=== PATIENT | male | born 1955 | race Caucasian/White ===

== ENCOUNTER 2019-10-30 12:19 | Emergency (ER) | payer MEDICAID ==
[2019-10-30] MEDS ORDERED: Sodium Chloride 0.9% 2.5 ML Syringe FLUSH PRN (13:14)
[2019-10-30] MEDS ORDERED: Sodium Chloride 0.9% 10 ML Syringe FLUSH PRN (13:14)
[2019-10-30 14:07] LABS: BLOOD UREA NITROGEN,BUN 17 mg/dL (7.0-18.0); CARBON DIOXIDE,CO2 25.4 mmol/L (21.0-32.0); CHLORIDE,CL 96 mmol/L (98-107); GLUCOSE RANDOM 377 mg/dL (74-106); POTASSIUM,K 3.9 mmol/L (3.5-5.1); SODIUM,NA 132 mmol/L (136-148)
--- NOTE | 2019-10-30 14:30 | US ---
Bilateral lower extremity deep venous ultrasound: Duplex and color Doppler evaluation was obtained of the right and left common femoral, superficial femoral, popliteal, posterior tibial and peroneal veins. Comparison: No prior venous imaging is available. Findings: Normal compression as well as normal Doppler blood flow is seen. Impression: 1. No evidence of deep venous thrombosis within either the right or left lower extremities. Diagnostic code #1 This report was dictated in MDT
[2019-10-30] MEDS ORDERED: Lactated Ringers 1,000 ML IV ONE (14:36)
[2019-10-30 14:51] LABS: HEMOGLOBIN A1C 11.7 % (4.5-6.2)
--- NOTE | 2019-10-30 14:52 | EDM.PDOC ---
ED HPI GENERAL MEDICAL PROBLEM - General Chief Complaint: Lower Extremity Injury/Pain Stated Complaint: SWELLING IN LEGS Time Seen by Provider: 10/30/19 12:38 Source of Information: Reports: Patient History Limitations: Reports: No Limitations - History of Present Illness INITIAL COMMENTS - FREE TEXT/NARRATIVE: 62-year-old male past medical history of CAD status post multiple stents, IVC filter placement for presumptive DVT, hypertension, COPD presenting with complaints of lower extremity edema. Patient reports a one-week history of worsening of his chronic bilateral lower extremity edema, right greater than left. Reports approximately 4-year history of lower extremity edema after an IVC filter placement that was complicated by filter deformity which made removal and possible. States that his bilateral lower extremity edema is worse over the past 4 weeks. States that his shoes are now tight and he has to elevate his legs for hours at a time to get the swelling to go down. Reports that he has also had mildly increased shortness of breath over the past month or so. Intermittent chest pain for the past month as well, did experience some fleeting chest pain in triage (for a few seconds) but none since. At present he does not have any chest discomfort or shortness of breath. Reports frequent urination over the past few weeks. Back Pain Score (Numeric/FACES): 8 - Related Data Allergies Allergy/AdvReac Type Severity Reaction Status Date / Time No Known Allergies Allergy Verified 10/30/19 12:29 Home Meds: Home Meds Metoprolol Tartrate 50 mg PO BID #60 tablet 10/30/19 [Rx] Metoprolol Tartrate [Lopressor] 50 mg PO BID 10/30/19 [History] amLODIPine Besylate [Amlodipine Besylate] 10 mg PO DAILY #30 tab 10/30/19 [Rx] amLODIPine [Norvasc] 10 mg PO DAILY 10/30/19 [History] metFORMIN HCl [Metformin HCl] 500 mg PO DAILY #30 tablet 10/30/19 [Rx] Past Medical History HEENT History: Reports: Other (See Below) Other HEENT History: ears ringing Cardiovascular History: Reports: Arrhythmia, Hypertension, Stents Respiratory History: Reports: COPD Other Respiratory History: Aspiration Musculoskeletal History: Reports: Back Pain, Chronic - Infectious Disease History Infectious Disease History: Reports: Chicken Pox, Measles, Mumps - Past Surgical History GI Surgical History: Reports: Cholecystectomy Social & Family History - Family History Family Medical History: Noncontributory - Tobacco Use Smoking Status *Q: Never Smoker - Recreational Drug Use Recreational Drug Use: No Review of Systems - Review of Systems Review Of Systems: See Below Constitutional: Denies: Chills, Fever Eyes: Reports: No Symptoms Ears: Reports: No Symptoms Nose: Reports: No Symptoms Mouth/Throat: Denies: Painful Swallowing Respiratory: Reports: Shortness of Breath. Denies: Cough, Hemoptysis Cardiovascular: Reports: Chest Pain, Edema. Denies: Palpitations, Syncope GI/Abdominal: Denies: Abdominal Pain, Nausea, Vomiting Genitourinary: Reports: Other (Polyuria) Musculoskeletal: Denies: Back Pain Skin: Denies: Rash Neurological: Denies: Headache, Numbness ED EXAM, GENERAL - Physical Exam Exam: See Below Free Text/Narrative:: Vital signs reviewed. Nursing notes reviewed. Constitutional: Awake, alert, non-distressed. Head: Normocephalic, atraumatic. Eyes: EOMI, conjunctiva normal, no discharge, no scleral icterus. Ears, Nose, Throat: External ears and nose normal, moist oral mucosa. Cardiovascular: Tachycardic, 2+ radial pulse, capillary refill less than 2 seconds. RRR no MRG. Trace edema of the bilateral lower extremities. Pulmonary: normal work of breathing, no accessory muscle use. CTA BL Abdomen/GI: Obese, soft, nontender, nondistended, no guarding or rigidity, no masses. Musculoskeletal: No deformities. Integumentary: Appropriate color for ethnicity, warm, dry, no pallor or jaundice, no rash. Neurologic: Alert, answering questions appropriately, normal speech, no facial droop, moving all extremities well. Psychiatric: Appropriate mood and affect, normal thought process. EKG INTERPRETATION EKG Interpretation Comments: 12-Lead ECG Interpretation Acquired: 1:12 PM Rhythm: Sinus tachycardia Rate: 114 bpm [place]: Normal Intervals: Normal Ectopy: Unifocal PVCs Ischemic Changes: Q waves in the inferior leads RV Strain: No obvious RV strain pattern. ST Segments/T-Waves: Biphasic T waves in aVL, subtle nondiagnostic ST segment depression in leads V2 and V3 less than 1 mm Interpretation: Abnormal EKG. No prior for comparison. Course - Vital Signs Text/Narrative:: Patient tachycardic but hemodynamically stable, afebrile, well-appearing, looks nontoxic. Differential diagnosis includes but is not limited to: Pulmonary embolism, acute coronary syndrome, congestive heart failure, pneumonia, pneumothorax, COPD exacerbation, hepatic failure, nephrotic syndrome, UTI, diabetes mellitus, thyroid disease etc. Chemistry panel shows hyperglycemia, mild hyponatremia. Glucose 377, hemoglobin A1c is 11.7. LFTs are normal, troponin negative, BNP negative, TSH within normal limits. DVT ultrasound study and chest x-rays are negative. Patient was given 1 L of IV fluids and heart rate is now 95. Urinalysis shows large glucose, trace protein, trace occult blood. At this point there is no evidence of a malignant process to explain the patient's bilateral lower extremity edema such as new onset congestive heart failure, nephrotic syndrome, renal failure, or hepatic failure. There is no evidence of a DVT. Low suspicion for pulmonary embolism given a negative d- dimer and lack of hypoxia. Tachycardia resolved after 1 L of crystalloid fluids. Chest x-rays are clear. Patient does not appear to exhibit any respiratory compromise at this point. Chest pain episode was fleeting and the patient has a negative troponin and the ECG shows no evidence of acute ischemia. I evaluated the patient at 1620 and his heart rate had improved to 95. He is not having any chest discomfort or shortness of breath at this moment. He did run out of his blood pressure medication about 2 days ago. If he is withdrawing from a beta-gumaro it is possible that he is having an element of reflex ta chycardia and that also could be mediating the hypertension we are seeing right now. The only abnormality we noted was new onset diabetes mellitus. Otherwise the patient is stable to discharge home. We will start him on a metformin prescription and I instructed him to follow-up with a primary medical clinic in [place], which is where he lives. He states he will be driving home in about 3 days time so we will have him establish care close to home. Will also f/u for microscopic hematuria with PMD. I did prescribe a one-time refill of his metoprolol tartrate and his amlodipine given that he ran out and he is hypertensive here. Plan: Patient is stable to discharge home with outpatient primary care follow- up. Strict emergency department return precautions were provided, patient indicated understanding. All questions were answered prior to departure. Discharged in good condition. Last Recorded V/S: Last Vital Signs Temp 36.3 C 10/30/19 12:32 Pulse 98 10/30/19 17:00 Resp 18 10/30/19 17:00 BP 164/112 H 10/30/19 17:00 Pulse Ox 98 10/30/19 17:00 - Orders/Labs/Meds Orders: Active Orders 24 hr Category Date Time Status Cardiac Monitoring [RC] . DIRECTED Care 10/30/19 13:14 Active EKG 12 Lead [EKG Documentation Completion] [RC] STAT Care 10/30/19 12:58 Active Pulse Oximetry [RC] ASDIRECTED Care 10/30/19 13:14 Active Sodium Chloride 0.9% [Saline Flush] Med 10/30/19 13:14 Active 10 ml FLUSH ASDIRECTED PRN Sodium Chloride 0.9% [Saline Flush] Med 10/30/19 13:14 Active 2.5 ml FLUSH ASDIRECTED PRN Saline Lock Insert [OM.PC] Stat Oth 10/30/19 13:14 Ordered Medication Orders Sodium Chloride (Saline Flush) 10 ml FLUSH ASDIRECTED PRN PRN Reason: Keep Vein Open Last Admin: 10/30/19 14:59 Dose: 10 ml Documented by: LEANNA Sodium Chloride (Saline Flush) 2.5 ml FLUSH ASDIRECTED PRN PRN Reason: Keep Vein Open Last Admin: 10/30/19 14:59 Dose: 2.5 ml Documented by: LEANNA Labs: Laboratory Tests 10/30/19 10/30/19 10/30/19 Range/Units 13:25 13:25 13:25 WBC 8.18 (4.0-11.0) K/uL RBC 5.61 (4.50-5.90) M/uL Hgb 17.2 H (13.0-17.0) g/dL Hct 49.4 (38.0-50.0) % MCV 88.1 (80.0-98.0) fL MCH 30.7 (27.0-32.0) pg MCHC 34.8 (31.0-37.0) g/dL RDW Std Deviation 39.6 (28.0-62.0) fl RDW Coeff of Salbador 12 (11.0-15.0) % Plt Count 190 (150-400) K/uL MPV 9.90 (7.40-12.00) fL Neut % (Auto) 60.6 (48.0-80.0) % Lymph % (Auto) 28.9 (16.0-40.0) % Delta % (Auto) 9.2 (0.0-15.0) % Eos % (Auto) 1.1 (0.0-7.0) % Baso % (Auto) 0.2 (0.0-1.5) % Neut # (Auto) 5.0 (1.4-5.7) K/uL Lymph # (Auto) 2.4 (0.6-2.4) K/uL Delta # (Auto) 0.8 (0.0-0.8) K/uL Eos # (Auto) 0.1 (0.0-0.7) K/uL Baso # (Auto) 0.0 (0.0-0.1) K/uL Nucleated RBC % 0.0 /100WBC Nucleated RBCs # 0 K/uL D-Dimer, Quantitative (0.0-0.50) mg/L FEU Sodium 132 L (136-148) mmol/L Potassium 3.9 (3.5-5.1) mmol/L Chloride 96 L (98-107) mmol/L Carbon Dioxide 25.4 (21.0-32.0) mmol/L BUN 17 (7.0-18.0) mg/dL Creatinine 1.0 (0.8-1.3) mg/dL Est Cr Clr Drug Dosing TNP Estimated GFR (MDRD) > 60.0 ml/min Glucose 377 H (74-106) mg/dL Hemoglobin A1c (4.5-6.2) % Calcium 8.3 L (8.5-10.1) mg/dL Total Bilirubin 0.5 (0.2-1.0) mg/dL AST 22 (15-37) IU/L ALT 42 (14-63) IU/L Alkaline Phosphatase 63 (46-116) U/L Troponin I < 0.050 (0.000-0.056) ng/mL B-Natriuretic Peptide 50 (<100) PG/ML Total Protein 7.1 (6.4-8.2) g/dL Albumin 3.8 (3.4-5.0) g/dL Globulin 3.3 (2.6-4.0) g/dL Albumin/Globulin Ratio 1.2 (0.9-1.6) TSH 3rd Generation 1.39 (0.36-3.74) uIU/mL Urine Color Urine Appearance Urine pH (5.0-8.0) Ur Specific [place] (1.001-1.035) Urine Protein (NEGATIVE) mg/dL Urine Glucose (UA) (NEGATIVE) mg/dL Urine Ketones (NEGATIVE) mg/dL Urine Occult Blood (NEGATIVE) Urine Nitrite (NEGATIVE) Urine Bilirubin (NEGATIVE) Urine Urobilinogen (<2.0) EU/dL Ur Leukocyte Esterase (NEGATIVE) Urine RBC (0-2/HPF) Urine WBC (0-5/HPF) Ur Epithelial Cells (NONE-FEW) Amorphous Sediment (NEGATIVE) Urine Bacteria (NEGATIVE) Urine Mucus (NONE-MOD) 10/30/19 10/30/19 10/30/19 Range/Units 13:25 13:25 16:15 WBC (4.0-11.0) K/uL RBC (4.50-5.90) M/uL Hgb (13.0-17.0) g/dL Hct (38.0-50.0) % MCV (80.0-98.0) fL MCH (27.0-32.0) pg MCHC (31.0-37.0) g/dL RDW Std Deviation (28.0-62.0) fl RDW Coeff of [place] (11.0-15.0) % Plt Count (150-400) K/uL MPV (7.40-12.00) fL Neut % (Auto) (48.0-80.0) % Lymph % (Auto) (16.0-40.0) % Delta % (Auto) (0.0-15.0) % Eos % (Auto) (0.0-7.0) % Baso % (Auto) (0.0-1.5) % Neut # (Auto) (1.4-5.7) K/uL Lymph # (Auto) (0.6-2.4) K/uL Delta # (Auto) (0.0-0.8) K/uL Eos # (Auto) (0.0-0.7) K/uL Baso # (Auto) (0.0-0.1) K/uL Nucleated RBC % /100WBC Nucleated RBCs # K/uL D-Dimer, Quantitative 0.36 (0.0-0.50) mg/L FEU Sodium (136-148) mmol/L Potassium (3.5-5.1) mmol/L Chloride (98-107) mmol/L Carbon Dioxide (21.0-32.0) mmol/L BUN (7.0-18.0) mg/dL Creatinine (0.8-1.3) mg/dL Est Cr Clr Drug Dosing Estimated GFR (MDRD) ml/min Glucose (74-106) mg/dL Hemoglobin A1c 11.7 H (4.5-6.2) % Calcium (8.5-10.1) mg/dL Total Bilirubin (0.2-1.0) mg/dL AST (15-37) IU/L ALT (14-63) IU/L Alkaline Phosphatase (46-116) U/L Troponin I (0.000-0.056) ng/mL B-Natriuretic Peptide (<100) PG/ML Total Protein (6.4-8.2) g/dL Albumin (3.4-5.0) g/dL Globulin (2.6-4.0) g/dL Albumin/Globulin Ratio (0.9-1.6) TSH 3rd Generation (0.36-3.74) uIU/mL Urine Color YELLOW Urine Appearance CLEAR Urine pH 6.0 (5.0-8.0) Ur Specific [place] 1.020 (1.001-1.035) Urine Protein TRACE H (NEGATIVE) mg/dL Urine Glucose (UA) >=1000 (NEGATIVE) mg/dL Urine Ketones 15 H (NEGATIVE) mg/dL Urine Occult Blood TRACE-INTACT H (NEGATIVE) Urine Nitrite NEGATIVE (NEGATIVE) Urine Bilirubin NEGATIVE (NEGATIVE) Urine Urobilinogen 0.2 (<2.0) EU/dL Ur Leukocyte Esterase NEGATIVE (NEGATIVE) Urine RBC 0-1 (0-2/HPF) Urine WBC 2-3 (0-5/HPF) Ur Epithelial Cells RARE (NONE-FEW) Amorphous Sediment RARE (NEGATIVE) Urine Bacteria RARE (NEGATIVE) Urine Mucus RARE (NONE-MOD) Meds: Medications Generic Name Dose Route Start Last Admin Trade Name Freq PRN Reason Stop Dose Admin Sodium Chloride 10 ml 10/30/19 13:14 07/28/20 14:59 Saline Flush FLUSH 10 ml ASDIRECTED PRN Administration Keep Vein Open Sodium Chloride 2.5 ml 10/30/19 13:14 10/30/19 14:59 Saline Flush FLUSH 2.5 ml ASDIRECTED PRN Administration Keep Vein Open Discontinued Medications Generic Name Dose Route Start Last Admin Trade Name Freq PRN Reason Stop Dose Admin Lactated Ringer's 1,000 mls @ 999 mls/hr 10/30/19 14:36 10/30/19 14:59 Ringers, Lactated IV 10/30/19 15:36 999 mls/hr .BOLUS ONE Administration Departure - Departure Time of Disposition: 16:37 Disposition: Home, Self-Care 01 Condition: Good Clinical Impression: Bilateral lower extremity edema, Atypical chest pain, Microscopic hematuria Diabetes mellitus Qualifiers: Diabetes mellitus type: other specified (including KRISTOPHER) Diabetes mellitus retirement insulin use: without intermediate frame tender use Diabetes mellitus complication status: with hyperglycemia Qualified Code(s): E13.65 - Other specified diabetes mellitus with hyperglycemia Dyspnea, unspecified Qualifiers: Dyspnea type: unspecified Qualified Code(s): R06.00 - Dyspnea, unspecified - Discharge Information *PRESCRIPTION DRUG MONITORING PROGRAM REVIEWED*: Not Applicable Prescriptions: amLODIPine Besylate [Amlodipine Besylate] 10 mg PO DAILY #30 tab metFORMIN HCl [Metformin HCl] 500 mg PO DAILY #30 tablet Metoprolol Tartrate 50 mg PO BID #60 tablet Instructions: Living With Diabetes, Shortness of Breath, Adult, Nonspecific Chest Pain, Adult, [id number], Blood Glucose Monitoring, Adult, Diabetes Mellitus and Exercise, Diabetes Mellitus and Nutrition, Adult Referrals: [facility] - Family Practice [Provider Group] - 2 Weeks (To establish primary care for new onset diabetes mellitus.) Forms: ED Department Discharge Additional Instructions: Thank you for choosing the [facility] emergency department in [facility] for your medical needs today. It was a pleasure caring for you. You were seen in the emergency department for leg swelling along with some shortness of breath and chest pain. Your blood work shows that you have diabetes mellitus, with elevated blood sugar. We are going to prescribe a medication called metformin, take this as directed. It is very important that you establish care with a primary medical clinic close to home for diabetes counseling and education and for other long- term treatments such as controlling her high blood pressure and evaluating you for high cholesterol and any other diabetic complications such as coronary artery disease (heart disease), kidney disease, vision loss/blindness, etc. The cause of your lower extremity swelling is not entirely clear but we do not see any evidence of a problem with your heart, liver, or kidneys. Your primary medical clinic can help work this up further. Your x-rays look clear and your blood clot ultrasound test was negative. We did notice a tiny amount of blood in your urine. Your primary medical clinic can re-test your urine for blood in a few weeks. If the blood is seen again, you may need to see a urologist to further evaluate for this. Please continue taking your regular prescribed medications, follow-up with a primary medical clinic in the next 1 to 2 weeks. Please return the emergency department immediately if your symptoms worsen or if you feel worse. The following information is given to patients seen in the emergency department who are being discharged. This information is to outline your options for follow-up care. We provide all patients seen in our emergency department with a follow-up referral. The need for follow-up, as well as the timing and circumstances, are variable depending upon the specifics of your emergency department visit. If you don't have a primary care physician on staff, we will provide you with a referral. We always advise you to contact your personal physician following an emergency department visit to inform them of the circumstance of the visit and for follow-up with them and/or the need for any referrals to a consulting specialist. The emergency department will also refer you to a specialist when appropriate. This referral assures that you have the opportunity for follow-up care with a specialist. All of these measure are taken in an effort to provide you with optimal care, which includes your follow-up. Under all circumstances we always encourage you to contact your private physician who remains a resource for coordinating your care. When calling for follow-up care, please make the office aware that this follow-up is from your recent emergency room visit. If for any reason you are refused follow-up, please contact the [facility] Emergency Department at and asked to speak to the emergency department charge nurse. If you do not have a primary care physician that is caring for you, you can contact these clinics below to set up an appointment to establish care: [facility] - Primary Care [address] [place] [address] [facility] [address] [place] [address] Sepsis Event Note (ED) - Evaluation Sepsis Screening Result: No Definite Risk - Focused Exam Vital Signs: Vital Signs Temp Pulse Resp BP BP Pulse Ox 10/30/19 17:00 98 18 182/122 H 164/112 H 98 10/30/19 14:58 107 H 96 10/30/19 12:32 36.3 C 110 H 20 197/127 H 94 L - My Orders Last 24 Hours: My Active Orders 10/30/19 12:58 EKG 12 Lead [EKG Documentation Completion] [RC] STAT 10/30/19 13:14 Cardiac Monitoring [RC] . DIRECTED Pulse Oximetry [RC] ASDIRECTED Sodium Chloride 0.9% [Saline Flush] 10 ml FLUSH ASDIRECTED PRN Sodium Chloride 0.9% [Saline Flush] 2.5 ml FLUSH ASDIRECTED PRN Saline Lock Insert [OM.PC] Stat - Assessment/Plan Last 24 Hours: My Active Orders 10/30/19 12:58 EKG 12 Lead [EKG Documentation Completion] [RC] STAT 10/30/19 13:14 Cardiac Monitoring [RC] . DIRECTED Pulse Oximetry [RC] ASDIRECTED Sodium Chloride 0.9% [Saline Flush] 10 ml FLUSH ASDIRECTED PRN Sodium Chloride 0.9% [Saline Flush] 2.5 ml FLUSH ASDIRECTED PRN Saline Lock Insert [OM.PC] Stat
--- NOTE | 2019-10-30 15:00 | CR ---
Chest: 2 views of the chest were obtained. Comparison: No previous chest imaging. Mild atelectasis is seen within both lung bases. Lungs otherwise are clear with no acute parenchymal change. Heart size is normal. Upper mediastinum is normal. Surgical clips are seen within the upper abdomen. Bony structures appear within normal limits for the patient's age. Impression: 1. Atelectasis within both lung bases. 2. Nothing acute is appreciated. Diagnostic code #2 This report was dictated in MDT
== END 2019-10-30 17:00 | disposition home or self-care (01) ==
LOC: MW.ED 12:19
DX: E13.65 Other specified diabetes mellitus with hyperglycemia (principal); R60.0 Localized edema; R07.89 Other chest pain; R31.29 Other microscopic hematuria; I25.10 Atherosclerotic heart disease of native coronary artery without angina pectoris; J44.9 Chronic obstructive pulmonary disease, unspecified; I10 Essential (primary) hypertension; Z95.5 Presence of coronary angioplasty implant and graft; Z79.899 Other long term (current) drug therapy; Z79.84 Long term (current) use of oral hypoglycemic drugs
CPT/HCPCS: 36415; 71046; 80053; 81001; 83036; 83880; 84443; 84484; 85025; 85379; 93005; 93970; 96360; 99285; J7120; 99284